=== PATIENT | male | born 1980 | race Caucasian/White ===

== ENCOUNTER 2021-05-06 10:22 | Outpatient (CLI) | payer BC, SELFPAY ==
[2021-05-06 10:35] LABS: Basophils Absolute Auto 0.04 K/mm3 (0.00-0.10); Basophils Percent Auto 0.5 % (0.0-1.0); Eosinophils Absolute Auto 0.11 K/mm3 (0.02-0.50); Eosinophils Percent Auto 1.4 % (1.0-6.0); Hematocrit 45.8 % (40.0-54.0); Hemoglobin 15.6 g/dL (14.0-18.0); Immature Granulocyte Absolute 0.02 K/mm3 (0.00-0.00); Immature Granulocyte Percent A 0.3 % (0.0-0.0); Lymphocytes Absolute Auto 1.22 K/mm3 (1.10-4.50); Lymphocytes Percent Auto 15.5 % (18.0-42.0); Mean Corpuscular HGB Conc 34.1 g/dL (32.0-36.0); Mean Corpuscular Hemoglobin 30.1 pg (27.0-31.0); Mean Corpuscular Volume 88.4 fL (78.0-102.0); Mean Platelet Volume 9.4 fl (8.7-11.0); Monocytes Absolute Auto 0.45 K/mm3 (0.10-0.90); Monocytes Percent Auto 5.7 % (2.0-11.0); Neutrophils Percent Auto 76.6 % (50.0-70.0); Platelet Count Result 201 K/mm3 (150-420); Red Blood Count 5.18 M/mm3 (4.70-6.10); White Blood Count 7.9 K/mm3 (4.8-10.8)
[2021-05-06 11:18] LABS: Alanine Aminotransferase 36 U/L (16-63); Albumin Level 4.2 g/dL (3.4-5.0); Alkaline Phosphatase 99 U/L (46-116); Anion Gap 15 mmol/L (8-16); Aspartate Amino Transferase 19 U/L (15-37); Bilirubin,Total 0.4 mg/dL (0.00-1.00); Blood Urea Nitrogen 7 mg/dL (7-18); Calcium 9.3 mg/dL (8.5-10.1); Carbon Dioxide 24 mmol/L (21-32); Chloride 105 mmol/L (98-108); Estimated Glomerular Filt Rate > 60; Glucose 111 mg/dL (70-99); Osmolality Calculated 297 mOsm/kg (285-295); Potassium 3.1 mmol/L (3.5-5.1); Sodium 144 mmol/L (136-145); Total Protein 7.2 g/dL (6.4-8.2)
[2021-05-06 11:39] LABS: Thyroid Stimulating Hormone Reflex 0.63 u/IU/mL (0.36-3.74)
[2021-05-11 18:26] LABS: Testosterone Free 90.7 pg/mL (35.0-155.0); Testosterone Total 458 ng/dL (250-1100)
[2021-05-12 08:56] LABS: FSH 6.2 mIU/mL (1.6-8.0)
== END 2021-05-06 10:23 | disposition home or self-care (01) ==
LOC: CHSLAB 10:24
PROVIDERS: PCP Family Medicine; Visit Provider Family Medicine
DX: N52.9 Male erectile dysfunction, unspecified (principal); J45.909 Unspecified asthma, uncomplicated; Z79.899 Other long term (current) drug therapy
CPT/HCPCS: 36415; 80053; 83001; 83002; 84402; 84403; 84443; 85025

== ENCOUNTER 2022-05-31 21:58 | Emergency (ER) | payer BC, SELFPAY ==
[2022-05-31 22:13] VITALS: BP 144/85; PULSE 55; RESP 16; TEMP 36.8; O2SAT 100
[2022-05-31 22:55] LABS: Appearance Urine Clear (Clear); Basophils Percent Auto 0.3 % (0.2-1.2); Bilirubin Urine Negative (Negative); Blood Urine 1+ (Negative); Color Urine Yellow (Yellow); Eosinophils Absolute Auto 0.3 K/mm3 (0-0.3); Eosinophils Percent Auto 2.7 % (0-4.4); Glucose Urine UA Negative (Negative); Hematocrit 38.6 % (42.0-52.0); Hemoglobin 12.7 g/dL (14.0-18.0); Immature Granulocyte Absolute 0.03 K/mm3 (0.00-0.031); Immature Granulocyte Percent A 0.3 % (0-0.5); Ketones Urine Negative (Negative); Leukocyte Esterase Ur Negative LEU/UL (Negative); Lymphocytes Percent Auto 19.6 % (18.3-44.2); Mean Corpuscular HGB Conc 32.9 g/dl (32-36); Mean Corpuscular Hemoglobin 31.6 pg (26-34); Monocytes Absolute Auto 0.7 K/mm3 (0.1-0.6); Monocytes Percent Auto 6.8 % (2.6-8.5); Neutrophils Absolute Auto 7.2 K/mm3 (1.3-6.7); Neutrophils Percent Auto 70.3 % (45.5-73.1); Nitrate Urine Negative (Negative); Platelet Count Result 201 k/mm3 (150-375); Protein Urine Negative (Negative); Red Blood Count 4.02 M/mm3 (4.6-6.20); Red Cell Distribution Width 12.9 % (11.5-14.5); Specific Grav Ur 1.025 (1.001-1.035); Urobilinogen Urine 0.2 mg/dL (<2.0); White Blood Count 10.2 K/mm3 (4.5-10.0)
[2022-05-31 22:58] LABS: Bacteria Urine Trace /hpf; Mucus Urine Rare /lpf
[2022-05-31 23:05] LABS: Add Urine Microscopic? YES
[2022-05-31 23:10] LABS: Amphetamine Screen Urine Negative (Negative); Barbiturate Screen Urine Negative (Negative); Benzodiazepines Screen Urine Negative (Negative); Cannabinoid Screen Urine Negative (Negative); Cocaine Screen Urine Negative (Negative); Ethanol < 10 mg/dL (<10); Lipase 92 U/L (23-300); Methadone Screen Urine Negative (Negative); Opiate Screen Urine Negative (Negative); Phencyclidine Screen Urine Negative (Negative)
[2022-05-31 23:21] LABS: Alanine Aminotransferase 25 U/L (6-50); Albumin Level 4.2 g/dL (3.5-5.1); Alkaline Phosphatase 76 U/L (38-126); Anion Gap 8 mmol/L (8-16); Aspartate Amino Transferase 33 U/L (17-59); Bilirubin,Total 0.3 mg/dL (0.2-1.3); Blood Urea Nitrogen 19 mg/dL (9-20); Calcium 9.4 mg/dL (8.4-10.2); Carbon Dioxide 24 mmol/L (22-30); Chloride 102 mmol/L (98-107); Creatine Kinase 324 U/L (55-170); Estimated CRCL calculation 98 ml/min; Estimated Glomerular Filt Rate > 60; Glucose 129 mg/dL (65-110); Potassium 3.6 mmol/L (3.4-5.0); Sodium 134 mmol/L (137-145)
[2022-06-01] VITALS (8 sets, daily range): BP systolic 128–148; BP diastolic 83–105; PULSE 48–94; RESP 13–16; O2SAT 97–100
[2022-06-01] MEDS: SODIUM CHLORIDE 0.9% IV 1,000 ML 999 ML IV CONT (00:58)
--- NOTE | 2022-06-01 02:00 | ED.GENADULT ---
HPI - General Adult General Chief complaint: Unspecified Stated complaint: pain in feet, back, right abdomen pain, testicular Time Seen by Provider: 06/01/22 00:13 History of Present Illness HPI narrative: 42-year-old male presents to the emergency department complaining of excessive tiredness and sore feet. Patient states that he has been walking from [place] to his home in [place]. Patient states he is walking because he has no one who can give him a ride. Patient states he is not homeless but does live in [place]. Patient states while he was walking he got very tired. Patient states earlier today he was having testicular pain but this pain has resolved. Patient denies any associated nausea vomiting or diarrhea. Patient denies any chest pain or shortness of breath. Patient does complain of tiredness but no other complaints. Patient states he did eat today Related Data Allergies Allergy/AdvReac Type Severity Reaction Status Date / Time No Known Allergies Allergy Verified 05/31/22 22:22 Review of Systems Review of Systems: CONSTITUTIONAL: Denies fever, chills, or sweats. EYES: Denies visual changes, redness, or discharge. ENT: Denies rhinorrhea, congestion, sore throat, or otalgia. CARDIOVASCULAR: Denies chest pain, palpitations, or edema. RESPIRATORY: Denies cough or dyspnea. GASTROINTESTINAL: Denies abdominal pain, nausea, vomiting, or diarrhea. GENITOURINARY: See HPI SKIN: Denies rash or itching. MUSCULOSKELETAL: Denies back pain, joint pain, or myalgia. NEUROLOGIC: Denies headache, numbness, or weakness. 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 HEAD: normocephalic, atraumatic. EYES: PERRLA/EOMI, conjunctivae clear. NOSE: Normal no drainage THROAT: Pharynx clear, no exudate. NECK: Supple. No adenopathy, no masses. RESPIRATORY: Airway patent, respirations nonlabored. Clear to auscultation bilaterally, no rales, rhonchi, wheezing. CARDIOVASCULAR: Regular rate and rhythm without murmurs rubs or gallops. ABDOMINAL: Soft, nontender, nondistended, normal bowel sounds MUSCULOSKELETAL: Moves all extremities. Strength/ROM intact, No edema, No calf tenderness. NEURO: Alert. Cranial nerves II through XII intact. SKIN: Warm, dry. Normal Color Course Course Emergency Course: Patient states he does feel improved with treatment. Patient does have a leukocytosis of 10.2 but is afebrile. Hemoglobin is 12.7. Patient's electrolytes are within normal limits. Patient does have mildly elevated creatinine but patient's urine is clear and patient does not have protein in his urine. Patient states he does feel comfortable being discharged to home but states he does need assistance in getting home. At time of signout care coordination consult is pending. Vital Signs Vital signs: Vital Signs Temperature 98.3 F 05/31/22 22:13 Pulse Rate 55 L 05/31/22 22:13 Respiratory Rate 16 05/31/22 22:13 Blood Pressure 144/85 H 05/31/22 22:13 Pulse Oximetry 100 05/31/22 22:13 Oxygen Delivery Room Air 05/31/22 22:13 Temperature 98.3 F 05/31/22 22:13 Pulse Rate 94 06/01/22 05:42 Respiratory Rate 15 06/01/22 05:42 Blood Pressure 146/89 H 06/01/22 05:42 Pulse Oximetry 97 06/01/22 05:42 Oxygen Delivery Room Air 05/31/22 22:13 Medical Decision Making Vital Signs Vital Signs: Vital Signs Temperature 98.3 F 05/31/22 22:13 Puls
[2022-06-01 02:56] LABS: SARS-CoV-2 RNA PCR Negative
--- NOTE | 2022-06-01 07:17 | PC.NURSE ---
Called Care Coordination to assist with pt's discharge
--- NOTE | 2022-06-01 07:33 | PC.NURSE ---
Spoke with Maura in care coordination regarding transport home.
--- NOTE | 2022-06-01 08:15 | PCCCNOTE ---
Addendum entered by Maura Membreno RN 06/01/22 13:04: Back down to ER to see if patient had received ride as no text messages were received. Spoke with ER security agent that states that patient was picked by his transportation around 1215. Addendum entered by Maura Membreno RN 06/01/22 12:41: 1130 Phone call received from Candis in ER admitting that patient has not been picked up yet. Called to [facility], jony Poole, she states that no one has accepted the ride and multiple no response. Zulema goes to expedite and sees that [facility] has acquired the ride but they may have come and gone and she does not have anyway to find out. If [facility] did accept the ride, the patient would have received a text on his phone. Patient does not have his phone with him . Provided Zulema with hospice spiritual care coordinator's cell phone number. Original Note: VM received from charge machine operator Susie to return call for patient assistance. Return phone call to ED spoke with Terri. Met with patient at bedside he states that he has been walking from [place] to his home in [place], he does not have anyone to pick him up and he does not have any money. Confirms address of [address] [place] [address]. [place] [address]. Patient confirms that he does have [facility] [employer] Plan insurance. Phone call to [facility] spoke with Nas in Transportation, [place] transportation arranged for 1055 the ride can come 15 minutes before and after that time. Reference # [id number]. All details of the trasnporation provided to bedside MCKAYLA Murray.
== END 2022-06-01 09:32 | disposition home or self-care (01) ==
PROVIDERS: Physician Assistant; Emergency Provider Emergency Medicine; PCP Family Medicine
DX: R53.83 Other fatigue (principal); Z20.822 Contact with and (suspected) exposure to COVID-19; J45.909 Unspecified asthma, uncomplicated; K21.9 Gastro-esophageal reflux disease without esophagitis; F17.290 Nicotine dependence, other tobacco product, uncomplicated
CPT/HCPCS: 36415; 80053; 80307; 81001; 82550; 83690; 84443; 85025; 96360; 99283; C9803; J7030; U0003; U0005

== ENCOUNTER 2022-08-04 22:02 | Emergency (ER) | payer BC, SELFPAY ==
[2022-08-04 22:10] VITALS: BP 120/87; PULSE 80; RESP 20; TEMP 36.6; O2SAT 98
--- NOTE | 2022-08-04 22:18 | ECG_ITS ---
Measurements Intervals [place] Rate: 65 P: 5 WY: 142 QRS: 68 QRSD: 101 T: 60 QT: 416 QTc: 436 Interpretive Statements SINUS RHYTHM WITHIN NORMAL LIMITS NO PREVIOUS ECG AVAILABLE FOR COMPARISON Electronically Signed On 08-05-2022 15:51:36 CDT by Louie Fernández M.D.
[2022-08-04 22:31] LABS: Basophils Absolute Auto 0.05 K/mm3 (0.00-0.10); Basophils Percent Auto 0.5 % (0.0-1.0); Eosinophils Absolute Auto 0.25 K/mm3 (0.02-0.50); Eosinophils Percent Auto 2.5 % (1.0-6.0); Hematocrit 39.9 % (40.0-54.0); Hemoglobin 13.3 g/dL (14.0-18.0); Immature Granulocyte Absolute 0.03 K/mm3 (0.00-0.00); Immature Granulocyte Percent A 0.3 % (0.0-0.0); Lymphocytes Absolute Auto 2.58 K/mm3 (1.10-4.50); Lymphocytes Percent Auto 25.5 % (18.0-42.0); Mean Corpuscular HGB Conc 33.3 g/dL (32.0-36.0); Mean Corpuscular Hemoglobin 31.8 pg (27.0-31.0); Mean Corpuscular Volume 95.5 fL (78.0-102.0); Monocytes Absolute Auto 0.68 K/mm3 (0.10-0.90); Monocytes Percent Auto 6.7 % (2.0-11.0); Neutrophils Absolute Auto 6.5 K/mm3 (1.7-7.2); Neutrophils Percent Auto 64.5 % (50.0-70.0); Platelet Count Result 247 K/mm3 (150-420); Red Blood Count 4.18 M/mm3 (4.70-6.10); Red Cell Distribution Width 12.4 % (11.6-14.4); White Blood Count 10.1 K/mm3 (4.8-10.8)
[2022-08-04 22:39] LABS: Appearance Urine Clear (Clear); Bilirubin Urine Negative (Negative); Blood Urine Negative (Negative); Glucose Urine UA Negative (Negative); Ketones Urine Negative (Negative); Leukocyte Esterase Ur Negative LEU/UL (Negative); Nitrate Urine Negative (Negative); Protein Urine Negative (Negative); Urobilinogen Urine 0.2 mg/dL (0.2-1.0); pH Urine 6.5 (5.0-8.0)
[2022-08-04 22:40] LABS: Add Urine Microscopic? NO; Color Urine Light Yellow (Yellow)
[2022-08-04 22:44] LABS: Amphetamine Screen Urine Negative (Negative); Barbiturate Screen Urine Negative (Negative); Benzodiazepines Screen Urine Negative (Negative); Cannabinoid Screen Urine Negative (Negative); Cocaine Screen Urine Negative (Negative); Methadone Screen Urine Negative (Negative); Opiate Screen Urine Negative (Negative); Phencyclidine Screen Urine Negative (Negative)
[2022-08-04 22:55] VITALS: BP 143/87; PULSE 65; RESP 18; TEMP 37; O2SAT 98
[2022-08-04 22:56] LABS: SARS-CoV-2 Ag Negative (Negative)
[2022-08-04 23:00] LABS: Acetaminophen < 2 ug/mL (10-30); Alanine Aminotransferase 21 U/L (16-63); Albumin Level 3.8 g/dL (3.4-5.0); Alkaline Phosphatase 68 U/L (46-116); Anion Gap 7 mmol/L (8-16); Aspartate Amino Transferase 15 U/L (15-37); Bilirubin,Total 0.3 mg/dL (0.00-1.00); Blood Urea Nitrogen 12 mg/dL (7-18); Calcium 8.9 mg/dL (8.5-10.1); Carbon Dioxide 28 mmol/L (21-32); Chloride 106 mmol/L (98-108); Estimated CRCL calculation 99 ml/min; Estimated Glomerular Filt Rate > 60; Ethanol 3 mg/dL (0-6); Glucose 95 mg/dL (70-99); Osmolality Calculated 291 mOsm/kg (285-295); Potassium 3.9 mmol/L (3.5-5.1); Salicylate 5.1 mg/dL (2.8-20.0); Sodium 141 mmol/L (136-145); Thyroid Stimulating Hormone 1.01 uIU/mL (0.36-3.74); Total Protein 6.7 g/dL (6.4-8.2)
[2022-08-05 00:50] VITALS: BP 130/87; PULSE 60; RESP 20; TEMP 37; O2SAT 98
[2022-08-05 01:25] LABS: SARS-CoV-2 RNA PCR Negative (Negative)
[2022-08-05 01:34] VITALS: BP 126/86; PULSE 66; RESP 16; TEMP 36.6; O2SAT 96
--- NOTE | 2022-08-05 04:47 | ED.PSYCH ---
HPI - Psych General Chief Complaint: Psychiatric Symptoms Stated Complaint: ambulance Time Seen by Provider: 08/04/22 22:08 Source: patient and EMS Mode of arrival: ambulatory Limitations: no limitations History of Present Illness HPI Narrative: this is a 42-year-old male that presents with suicidal ideation history of depression and was brought in by EMS for the patient on an overpass threatening to jump off into oncoming traffic to kill himself. Patient has a history of depression has been not taking his medication because of the weight makes him feel. Otherwise there is no fever chills no chest pain no shortness of breath. complaint: suicidal ideation and feels depressed Onset (ago): week(s) Duration: constant History of same: Yes Relieving factors: none Exacerbating factors: none Related Data Allergies Allergy/AdvReac Type Severity Reaction Status Date / Time No Known Allergies Allergy Verified 05/31/22 22:22 Review of Systems Review of Systems: All systems reviewed & are unremarkable except as noted in HPI and below PMFSH Past Medical History Medical History Anxiety Asthma Bipolar 1 disorder Erectile dysfunction GERD (gastroesophageal reflux disease) [place] use Nicotine dependence Social History Social History Smoking status: Current every day smoker Tobacco type: cigars Alcohol intake: never 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 Substance use: never Substance use type: does not use Exam Const: General: healthy appearing, no acute distress and alert HENMT: Head: normal to inspection Face/Nose/Sinus: Normal external nose present Face and sinus: normal facial exam Mouth: Yes Normal oral and palatal mucosa present Eyes: Conjunctivae: conjunctivae normal EOM: EOMs intact bilaterally Neck: Neck: normal visual inspection Chest: Chest palpation & inspection: normal inspection of the chest Resp: Effort & Inspection: normal respiratory effort Auscultation: clear to auscultation bilaterally Cardio: Rate: regular rate Rhythm: regular rhythm GI: GI Palp: Yes Soft to palpation Auscultation: normal bowel sounds Skin: General skin exam: normal color Rashes: no rashes Wounds: no wounds Neuro: General: patient oriented x3, moves all extremities, no meningeal signs and no focal motor deficits Psych: Affect: Sad affect present Course Course Emergency Course: Labs reviewed patient mental health evaluation agreed with placement and accepting facility [place] Vital Signs Vital signs: Vital Signs Temperature 36.6 C 08/04/22 22:10 Pulse Rate 80 08/04/22 22:10 Respiratory Rate 20 08/04/22 22:10 Blood Pressure 120/87 08/04/22 22:10 Pulse Oximetry 98 08/04/22 22:10 Oxygen Delivery Room Air 08/04/22 22:10 Temperature 36.6 C 08/05/22 01:34 Pulse Rate 66 08/05/22 01:34 Respiratory Rate 16 08/05/22 01:34 Blood Pressure 126/86 08/05/22 01:34 Pulse Oximetry 96 08/05/22 01:34 Oxygen Delivery Room Air 08/05/22 01:34 MDM - Psych Lab Data Result diagrams: 08/04/22 22:27 08/04/22 22:27 Labs: Lab Results 08/04/22 08/04/22 08/04/22 Range/Units 22:27 22:27 22:27 WBC 10.1 (4.8-10.8) K/mm3 RBC 4.18 L (4.70-6.10) M/mm3 Hgb 13.3 L (14.0-18.0) g/dL Hct 39.9 L (40.0-54.0) % MCV 95.5 (78.0-102.0) fL MCH 31.8 H (27.0-31.0) pg MCHC 33.3 (32.0-36.0) g/dL RDW 12.4 (11.6-14.4) % Plt Count 247 (150-420) K/mm3 MPV 9.0 (8.7-11.0) fl Immature Gran % (Auto) 0.3 H (0.0-0.0) % Neut % (Auto) 64.5 (50.0-70.0) % Lymph % (Auto) 25.5 (18.0-42.0) % [place]gg % (Auto) 6.7 (2.0-11.0) % Eos % (Auto) 2.5 (1.0-6.0) % Baso % (Auto) 0.5 (0.0-1.0) % Lymph # (Auto) 2.58 (1.10-4.50) K/mm3 [place]gg # (Auto) 0.68 (0.10-0
[2022-08-05 04:58] VITALS: BP 132/88; PULSE 60; RESP 16; TEMP 37; O2SAT 98
== END 2022-08-05 05:22 ==
PROVIDERS: Emergency Provider Emergency Medicine
DX: R45.851 Suicidal ideations (principal); Z20.822 Contact with and (suspected) exposure to COVID-19
CPT/HCPCS: 36415; 80053; 80307; 81003; 84443; 85025; 87426; 93005; 99285; C9803; U0003; U0005

== ENCOUNTER 2022-08-20 11:36 | Emergency (ER) | payer BC, SELFPAY ==
[2022-08-20 11:40] VITALS: BP 148/84; PULSE 77; RESP 16; TEMP 36.8; O2SAT 99
--- NOTE | 2022-08-20 12:59 | ED.LOWEXIN ---
HPI - Extremity Injury (Lower) General Chief Complaint: Extremity Injury, Lower Stated Complaint: feet pain Time Seen by Provider: 08/20/22 11:54 History of Present Illness HPI Narrative: Patient is a 42-year-old male who presents ER with bilateral foot pain. Reports began today after walking outside in the morning dew to soaks through his shoe. He did not suffer any trauma. Has no exertional concerns. Patient recently seen in [place] due to psychiatric illness and suicidal ideation. He was hospitalized. Reports he spent a night away from his girl and they are now so he is in a much better place. Related Data Home Medications Medication Instructions Recorded Confirmed No Home Medications 08/20/22 08/20/22 Allergies Allergy/AdvReac Type Severity Reaction Status Date / Time No Known Allergies Allergy Verified 08/20/22 11:51 Review of Systems Review of Systems: All systems reviewed & are unremarkable except as noted in HPI and below Constitutional: Constitutional: Denies chills and Denies fever(s) Cardiovascular: Cardiovascular: Denies chest pain, Denies rapid heart rate and Denies radiating jaw, neck or arm pain Respiratory: Respiratory: Denies cough and Denies dyspnea Gastrointestinal: Gastrointestinal: Denies abdominal pain, Denies nausea and Denies vomiting Musculoskeletal: Musculoskeletal: Denies arthralgias and Denies joint swelling Comments: Bilateral foot pain Integumentary/Breasts: Skin/Breast: Denies pruritus, Reports rash and Denies skin ulcer Neurologic: Denies focal weakness and Denies numbness Psychiatric: Psychiatric: Denies homicidal ideation PMFSH Past Medical History Medical History Anxiety Asthma Bipolar 1 disorder Erectile dysfunction GERD (gastroesophageal reflux disease) [place] use Nicotine dependence Social History Social History Smoking status: Current every day smoker Tobacco type: cigars Alcohol intake: never 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 HEAD: Normocephalic, atraumatic. EYES: PERRL and EOMI. ENT: Mucous membranes moist. HEART: Regular rate and rhythm. Normal peripheral pulses. EXTREMITIES: Normal range of motion. No edema. SKIN: Warm, dry. Bilateral feet with slight changes of tissue from moisture injury. Over the first MTP and sole of the foot patient has thickening and whitish discoloration of the skin due to excessive moisture. A couple of the tips of his toes have some small blisters. There is no cellulitis or pustules. No open wounds. NEURO: Alert and oriented x3. PSYCH: Normal mood and affect. No SI/HI. No hallucinations. Course Course Emergency Course: Patient has no SI/HI. Educated on treatment of seat. Patient asking if he can get a ride home to [place]. Discussed that we do not provide transportation to otherwise healthy and capable individuals. Vital Signs Vital signs: Vital Signs Temperature 98.2 F 08/20/22 11:40 Pulse Rate 77 08/20/22 11:40 Respiratory Rate 16 08/20/22 11:40 Blood Pressure 148/84 H 08/20/22 11:40 Pulse Oximetry 99 08/20/22 11:40 Temperature 98.2 F 08/20/22 11:40 Pulse Rate 77 08/20/22 11:40 Respiratory Rate 16 08/20/22 11:40 Blood Pressure 148/84 H 08/20/22 11:40 Pulse Oximetry 99 08/20/22 11:40 Discharge Plan Discharge Clinical Impression: Trench feet Patient Disposition: Home, Self-Care Condition: Stable Additional Instructions: Some skin changes to your feet related to having your foot in a moist environment for prolonged time. You need to dry out your shoes and socks as well as your feet so that they heal properly. Return to the ER if your feet ar
== END 2022-08-20 13:15 | disposition home or self-care (01) ==
PROVIDERS: Emergency Provider Emergency Medicine
DX: T69.022A Immersion foot, left foot, initial encounter (principal); T69.021A Immersion foot, right foot, initial encounter; K21.9 Gastro-esophageal reflux disease without esophagitis; J45.909 Unspecified asthma, uncomplicated; F17.290 Nicotine dependence, other tobacco product, uncomplicated; X31.XXXA Exposure to excessive natural cold, initial encounter
CPT/HCPCS: 99281

== ENCOUNTER 2024-02-28 23:15 | Emergency (ER) | payer BC, SELFPAY ==
[2024-02-28 23:15] VITALS: BP 149/94; PULSE 86; RESP 20; TEMP 36.8; O2SAT 97
--- NOTE | 2024-02-28 23:24 | ED.MALEGU ---
HPI - Male Genitourinary General Chief complaint: Urogenital-Male Stated complaint: urinary catheter problem Time Seen by Provider: 02/28/24 23:19 Source: patient Mode of arrival: ambulatory Limitations: no limitations History of Present Illness HPI Narrative: 43 year old male presents to the Emergency Department complaining of that thing inside me. Patient has a urinary catheter in place for past week. Was seen at [facility] for urinary retention and catheter placed. Has been on antibiotics for over a week for UTI. Was supposed to follow up with Urology, but has not. MD Complaint: other (bladder pain) Duration: constant Severity: moderate Relieving factors: none Exacerbating factors: none Associated symptoms: Reports urinary retention and blood in urine Related Data Sexually active: Yes Home Medications Medication Instructions Recorded Confirmed bupropion HCl 150 mg 24 hr tablet, 150 mg PO DAILY 02/28/24 02/28/24 extended release doxycycline hyclate 100 mg capsule 100 mg PO BID 02/28/24 02/28/24 hydroxyzine HCl 25 mg tablet 25 mg PO PRN 02/28/24 02/28/24 naltrexone 50 mg tablet 50 mg PO DAILY 02/28/24 02/28/24 quetiapine 100 mg tablet 100 mg PO HS 02/28/24 02/28/24 risperidone 3 mg tablet 3 mg PO EVERY OTHER DAY 02/28/24 02/29/24 venlafaxine 150 mg 150 mg PO DAILY 02/28/24 02/29/24 capsule,extended release 24 hr Allergies Allergy/AdvReac Type Severity Reaction Status Date / Time No Known Allergies Allergy Verified 02/28/24 23:56 Review of Systems Review of Systems: All systems reviewed & are unremarkable except as noted in HPI and below Constitutional: Constitutional: Reports as per HPI, Denies chills and Denies fever(s) Eyes: Eyes: Reports as per HPI ENT: Reports system reviewed and no additional complaints, except as documented Cardiovascular: Cardiovascular: Reports as per HPI Respiratory: Respiratory: Reports as per HPI Gastrointestinal: Gastrointestinal: Reports as per HPI, Denies diarrhea, Denies nausea and Denies vomiting Genitourinary: Genitourinary: Reports no additional male genitourinary complaints Comments: complains of bladder cath pain Musculoskeletal: Musculoskeletal: Reports no additional musculoskeletal complaints Integumentary/Breasts: Skin/Breast: Reports system reviewed and no additional complaints, except as docu Neurologic: Reports system reviewed and no additional complaints, except as documented PMFSH Past Medical History Medical History Anxiety Asthma Bipolar 1 disorder Erectile dysfunction GERD (gastroesophageal reflux disease) [place] use Nicotine dependence Social History Social History Smoking status: Current every day smoker Tobacco type: cigars Alcohol intake: never 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 Substance use: never Substance use type: does not use Living arrangements: with family Occupation/Education: unemployed Exam Const: General: healthy appearing Nutritional Appearance: well nourished Limitations: no limitations HENMT: Head: normal to inspection Face/Nose/Sinus: Normal external nose present Face and sinus: normal facial exam Eyes: Pupils: Equal, round and reactive pupils present EOM: EOMs intact bilaterally Direct Ophthalmoscopy: no photophobia Neck: Neck: normal visual inspection Chest: Chest palpation & inspection: normal inspection of the chest Resp: Effort & Inspection: normal respiratory effort Auscultation: clear to auscultation bilaterally Cardio: Rate: regular rate Rhythm: regular rhythm Heart sounds: no murmurs GI: Inspection: non-distended GI Palp: Yes Soft to palpation, No Tenderness to palpation present (GI) and No Guarding due to palpation present (GI) : General: Yes bladder normal to palpation Urinary Catheter: Urinary Catheter: patent a
[2024-02-29 00:53] LABS: Appearance Urine Clear (Clear); Bilirubin Urine Negative (Negative); Blood Urine 3+ (Negative); Color Urine Light Yellow (Yellow); Glucose Urine UA Negative (Negative); Ketones Urine Negative (Negative); Leukocyte Esterase Ur 1+ (Negative); Nitrate Urine Negative (Negative); Protein Urine 1+ (Negative); Urobilinogen Urine 0.2 mg/dL (0.2-1.0); pH Urine 6.5 (5.0-8.0)
[2024-02-29 00:59] LABS: Add Urine Microscopic? YES; RBC Urine 51-75 /hpf (0-2)
[2024-02-29 01:00] LABS: Bacteria Urine Trace /hpf; Squamous Epithelial Cell Urine Rare /hpf (Few)
[2024-02-29] MEDS: SULFAMETHOXAZOLE/TRIMETHOPRIM 800/160 MG DS TABLET 1 TAB PO (02:04)
[2024-02-29] MEDS: PHENAZOPYRIDINE HCL 100 MG TABLET 200 MG PO (02:04)
[2024-02-29 02:05] VITALS: BP 142/90; PULSE 84; RESP 20; TEMP 36.8; O2SAT 97
== END 2024-02-29 02:05 | disposition home or self-care (01) ==
PROVIDERS: Emergency Provider Emergency Medicine; PCP Family Medicine
DX: N39.0 Urinary tract infection, site not specified (principal); Z46.6 Encounter for fitting and adjustment of urinary device; J45.909 Unspecified asthma, uncomplicated; F31.9 Bipolar disorder, unspecified; F41.9 Anxiety disorder, unspecified; F17.290 Nicotine dependence, other tobacco product, uncomplicated; F10.21 Alcohol dependence, in remission
CPT/HCPCS: 81001; 99283; A9270

== ENCOUNTER 2024-08-04 20:12 | Emergency (ER) | payer BC, SELFPAY ==
[2024-08-04 20:13] VITALS: BP 131/89; PULSE 71; RESP 18; TEMP 37.2; O2SAT 100
--- NOTE | 2024-08-04 20:40 | PC.NURSE ---
When pt initially arrived he stated to tech that he needed to be seen for bi-lat foot pain. Once he was in the room, he informed this RN that in addition to foot pain, he is also depressed. After ERP examined pt, it was decided that he should be moved to Room 5 for psych consult. Pt's belongings and clothing were inventoried. Pt was placed in paper scrubs. Belongings secured.
--- NOTE | 2024-08-04 20:41 | PC.NURSE ---
ERP states that pt is in need of a mental health consult and does not feel the patient is truly a danger to himself at this time. Pt scored LOW on [place] Scale. ERP did not feel pt needed sitter to be with him.
[2024-08-04 21:23] VITALS: BP 130/88; PULSE 85; RESP 18; TEMP 37.3; O2SAT 99
--- NOTE | 2024-08-04 21:36 | PC.NURSE ---
COVID PCR obtained and sent to lab
--- NOTE | 2024-08-04 21:52 | ED_ITS ---
HPI - General Adult General Chief complaint: Psychiatric Symptoms Stated complaint: foot pain Source: patient Mode of arrival: ambulatory Limitations: no limitations History of Present Illness HPI narrative: 44-year-old white male complains of feeling depressed and want to kill himself. He has been walking for miles an hours last couple days and he says nobody wants him. when I asked him what he hoped to get from this ER visit he said he was hoping I would shoot him in the head. 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 He says none of his family that live around here locally want him. He has no where to go. Patient complains of Bill blisters on his feet from walking so much and pain in his feet. Denies any other trauma. Denies any problems eating or drinking voiding or stooling other problems walking talking seeing or hearing rash or itching bleeding or bruising other swelling besides his feet, dizziness or lightheadedness or any other complaints. Related Data Home Medications Medication Instructions Recorded Confirmed bupropion HCl 150 mg 24 hr tablet, 150 mg PO DAILY 02/28/24 08/04/24 extended release doxycycline hyclate 100 mg capsule 100 mg PO BID 02/28/24 08/04/24 hydroxyzine HCl 25 mg tablet 25 mg PO PRN 02/28/24 08/04/24 naltrexone 50 mg tablet 50 mg PO DAILY 02/28/24 08/04/24 quetiapine 100 mg tablet 100 mg PO HS 02/28/24 08/04/24 risperidone 3 mg tablet 3 mg PO EVERY OTHER DAY 02/28/24 08/04/24 venlafaxine 150 mg 150 mg PO DAILY 02/28/24 08/04/24 capsule,extended release 24 hr Allergies Allergy/AdvReac Type Severity Reaction Status Date / Time No Known Allergies Allergy Verified 08/04/24 20:52 Review of Systems Review of Systems: All systems reviewed & are unremarkable except as noted in HPI and below PMFSH Past Medical History Medical History Anxiety Asthma Bipolar 1 disorder Erectile dysfunction GERD (gastroesophageal reflux disease) [place] use Nicotine dependence Social History Social History Smoking status: Current every day smoker Tobacco type: cigars Alcohol intake: never 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 He does look depressed and has poor eye contact. Head normocephalic, atraumatic.? Eyes conjunctiva pink sclera nonicteric.? Extraocular movements are intact.? Ears externally normal.? Oropharynx is clear with moist mucous membranes without exudates.? Neck is supple nontender no lymphadenopathy.? Back is nontender.? Lungs are clear.? Heart is regular rate and rhythm without murmurs gallops or rubs.? Chest wall nontender. Abdomen is soft and nontender no hepatosplenomegaly or masses no CVA tenderness no abdominal bruits.? Extremities : Bilateral feet have mild swelling with multiple blisters intact. DP and PT pulses are +2 equal bilaterally.? Skin is warm and dry without rashes or lesions.? Neurological patient is alert and oriented x4.? Motor and sensory grossly intact.? Gait is normal. Course Vital Signs Vital signs: Vital Signs Temperature 37.2 C 08/04/24 20:13 Pulse Rate 71 08/04/24 20:13 Respiratory Rate 18 08/04/24 20:13 Blood Pressure 131/89 08/04/24 20:13 Pulse Oximetry 100 08/04/24 20:13 Oxygen Delivery Room Air 08/04/24 20:13 Temperature 36.9 C 08/05/24 04:04 Pulse Rate 67 08/05/24 04:04 Respiratory Rate 18 08/05/24 04:04 Blood Pressure 119/84 08/05/24 04:04 Pulse Oximetry 98 08/05/24 04:04 Oxygen Delivery Room Air 08/05/24 04:04 Medical Decision Making MDM Narrative Medical decision making narrative: Patient was placed in Room # Five History and physical was performed. Room 5 fever while she is in place in warm water. He is given a meal. And Ty lenol 1000 mg. . Hemoglobin 12.2 hematocrit 35 rest of CBC is normal. CMP normal.? Normal salicylate and acetaminophen level.? Urine drug screen positive for THC and negative for alcohol.? Negative COVID flu RSV Independent Historian: patient External Source Review: Differential Dx includes but not limited to: anxiety depression suicidal ideation Medications were Reviewed: home meds review Independently Interpreted by me: Tylenol 1000 mg Meds, treatment, ED course: Social Situation Impacting Patients Care: Shared decision Making: evaluation was discussed all questions were asked and answered patient agreed with the plan. patient seen by behavioral health and feels like it is safe for discharge so has a safety plan is to follow up with [facility] DISCHARGE DIAGNOSIS: Depression and suicide ideation without intent medically cleared for psychiatric admission for further evaluation treatment DISPOSITION: discharge home CONDITION AT DISCHARGE: Stable Vital Signs Vital Signs: Vital Signs Temperature 37.2 C 08/04/24 20:13 Pulse Rate 71 08/04/24 20:13 Respiratory Rate 18 08/04/24 20:13 Blood Pressure 131/89 08/04/24 20:13 Pulse Oximetry 100 08/04/24 20:13 Oxygen Delivery Room Air 08/04/24 20:13 Temperature 36.9 C 08/05/24 04:04 Pulse Rate 67 08/05/24 04:04 Respiratory Rate 18 08/05/24 04:04 Blood Pressure 119/84 08/05/24 04:04 Pulse Oximetry 98 08/05/24 04:04 Oxygen Delivery Room Air 08/05/24 04:04 Lab Data 08/04/24 22:26 08/04/24 22:26 Labs: Lab Results 08/04/24 08/04/24 08/04/24 Range/Units 21:53 21:54 22:26 WBC 9.9 (4.8-10.8) K/mm3 RBC 3.84 L (4.70-6.10) M/mm3 Hgb 12.2 L (14.0-18.0) g/dL Hct 35.0 L (40.0-54.0) % MCV 91.1 (78.0-102.0) fL MCH 31.8 H (27.0-31.0) pg MCHC 34.9 (32-36) g/dL RDW 11.9 (11.6-14.4) % Plt Count 215 (150-420) K/mm3 MPV 8.8 (8.7-11.0) fl Sodium 140 (136-145) mmol/L Potassium 3.8 (3.5-5.1) mmol/L Chloride 103 (98-108) mmol/L Carbon Dioxide 27 (21-32) mmol/L Anion Gap 10 (4-12) mmol/L BUN 13 (7-18) mg/dL Creatinine 1.16 (0.70-1.30) mg/dL Estim Creat Clear Calc 84 ml/min Estimated GFR > 60 (59 - ) Glucose 138 H (70-99) mg/dL Calculated Osmolality 292 (285-295) mOsm/kg Calcium 9.1 (8.5-10.1) mg/dL Total Bilirubin 0.5 (0.00-1.00) mg/dL AST 36 (15-37) U/L ALT 32 (16-63) U/L Alkaline Phosphatase 62 (46-116) U/L Total Protein 6.4 (6.4-8.2) g/dL Albumin 3.6 (3.4-5.0) g/dL Salicylates 3.2 (2.8-20.0) mg/dL Urine Opiates Screen Negative (Negative) Urine Methadone Screen Negative (Negative) Acetaminophen < 2 L (10-30) ug/mL Ur Barbiturates Screen Not Reportable Ur Phencyclidine Scrn Negative (Negative) Ur Amphetamine Screen Negative (Negative) U Benzodiazepines Scrn Negative (Negative) Urine Cocaine Screen Negative (Negative) U Cannabinoids Screen Positive A (Negative) Ethyl Alcohol < 3 (0-6) mg/dL Influenza A (RT-PCR) Negative (Negative) Influenza B (RT-PCR) Negative (Negative) RSV (RT-PCR) Negative (Negative) SARS-CoV-2 RNA (RT-PCR) Negative (Negative) Discharge Plan Discharge Clinical Impression: Suicide ideation Depression Qualifiers: Depression Type: unspecified Qualified Code(s): F32.A - Depression, unspecified Patient Disposition: Home, Self-Care Condition: Stable Instructions: Depression (ED), Suicide Prevention (ED) Additional Instructions: continue present medication prescribed. Follow safety plan as discussed with mental health. Follow-up with [facility] today. Return any problems or concerns. Prescriptions: No Action doxycycline hyclate 100 mg capsule 100 mg PO BID naltrexone 50 mg tablet 50 mg PO DAILY venlafaxine 150 mg capsule,extended release 24hr 150 mg PO DAILY quetiapine 100 mg tablet 100 mg PO HS risperidone 3 mg tablet 3 mg PO EVERY OTHER DAY hydroxyzine HCl 25 mg tablet 25 mg PO PRN bupropion HCl 150 mg tablet extended release 24 hr 150 mg PO DAILY sulfamethoxazole-trimethoprim [Bactrim DS] 800-160 mg tablet 1 tablet PO Q12H Qty: 14 0RF phenazopyridine [Pyridium] 200 mg tablet 200 mg PO TID PRN (Reason: pain) 2 Days Qty: 6 0RF Follow-up/Referrals: Andrea,MD Jerel [Primary Care Provider] - Time of Disposition: 04:42
[2024-08-04 22:11] LABS: Amphetamine Screen Urine Negative (Negative); Benzodiazepines Screen Urine Negative (Negative); Cannabinoid Screen Urine Positive (Negative); Cocaine Screen Urine Negative (Negative); Methadone Screen Urine Negative (Negative); Opiate Screen Urine Negative (Negative); Phencyclidine Screen Urine Negative (Negative)
--- NOTE | 2024-08-04 22:33 | PC.NURSE ---
Pt sleeping in room 5. Waiting for all test results for medical clearance.
[2024-08-04 22:34] LABS: Hemoglobin 12.2 g/dL (14.0-18.0); Mean Corpuscular HGB Conc 34.9 g/dL (32-36); Mean Corpuscular Hemoglobin 31.8 pg (27.0-31.0); Mean Corpuscular Volume 91.1 fL (78.0-102.0); Mean Platelet Volume 8.8 fl (8.7-11.0); Platelet Count Result 215 K/mm3 (150-420); Red Blood Count 3.84 M/mm3 (4.70-6.10); Red Cell Distribution Width 11.9 % (11.6-14.4); White Blood Count 9.9 K/mm3 (4.8-10.8)
[2024-08-04 22:44] LABS: SARS-CoV-2 RNA PCR Negative (Negative)
[2024-08-04 22:45] LABS: Influenza A QL RT-PCR Negative (Negative); Influenza B QL RT-PCR Negative (Negative); RSV RNA, RT-PCR Negative (Negative)
[2024-08-04 22:48] LABS: Alanine Aminotransferase 32 U/L (16-63); Albumin Level 3.6 g/dL (3.4-5.0); Alkaline Phosphatase 62 U/L (46-116); Anion Gap 10 mmol/L (4-12); Aspartate Amino Transferase 36 U/L (15-37); Bilirubin,Total 0.5 mg/dL (0.00-1.00); Blood Urea Nitrogen 13 mg/dL (7-18); Calcium 9.1 mg/dL (8.5-10.1); Carbon Dioxide 27 mmol/L (21-32); Chloride 103 mmol/L (98-108); Estimated CRCL calculation 84 ml/min; Estimated Glomerular Filt Rate > 60; Glucose 138 mg/dL (70-99); Osmolality Calculated 292 mOsm/kg (285-295); Potassium 3.8 mmol/L (3.5-5.1); Salicylate 3.2 mg/dL (2.8-20.0); Sodium 140 mmol/L (136-145); Total Protein 6.4 g/dL (6.4-8.2)
[2024-08-04 22:59] LABS: Acetaminophen < 2 ug/mL (10-30); Ethanol < 3 mg/dL (0-6)
--- NOTE | 2024-08-04 23:36 | PC.NURSE ---
Pt sleeping. ERP said not to wake pt to give pain medication. ERP states that it is just available in case pt is still having pain when he wakes up. Pt has been medically cleared by ERP. Waiting on [address] to arrive.
[2024-08-05 01:12] VITALS: BP 120/82; PULSE 74; RESP 18; TEMP 37.1; O2SAT 98
[2024-08-05 04:04] VITALS: BP 119/84; PULSE 67; RESP 18; TEMP 36.9; O2SAT 98
--- NOTE | 2024-08-05 04:30 | PC.NURSE ---
Pt belongings return to pt. Pt getting dressed and ready for discharge.
== END 2024-08-05 04:55 | disposition home or self-care (01) ==
PROVIDERS: Emergency Provider Emergency Medicine; PCP Family Medicine
DX: R45.851 Suicidal ideations (principal); F32.A Depression, unspecified; M79.672 Pain in left foot; M79.671 Pain in right foot; Z20.822 Contact with and (suspected) exposure to COVID-19
CPT/HCPCS: 36415; 80053; 80143; 80179; 80307; 82077; 85027; 87637; 99284